=== PATIENT | female | born 1995 ===

== ENCOUNTER 2024-06-02 11:48 | Outpatient (CLI) | payer BC, SELFPAY ==
--- NOTE | ~2024-06-02 | US_ITS ---
EXAMINATION: US pelvic complete DATE: 06/02/2024 12:07 INDICATION: IUD check TECHNIQUE: Multiple transabdominal sonographic images of the pelvis were obtained. COMPARISON: None. FINDINGS: The uterus measures 8.3 x 4.2 x 2.5 cm. The endometrial complex measures 6 mm in thickness. There is a T-shaped linear echogenic and in places shadowing IUD in expected position within the endometrial canal. The right ovary measures 3.2 x 2.5 x 1.3 cm. The left ovary measures 2.9 x 2.7 x 1.7 cm. Vascu lar flow identified in both ovaries on color Doppler. There is no free fluid in the pelvis. IMPRESSION: 1. Unremarkable pelvic ultrasound with IUD in expected position within the endometrial canal. Reviewed, dictated and finalized at location A. IMPRESSION: 1. Unremarkable pelvic ultrasound with IUD in expected position within the endo metrial canal.
== END 2024-06-02 11:49 | disposition home or self-care (01) ==
LOC: MICIMG 11:49
PROVIDERS: PCP Obstetrics & Gynecology Gynecology; Visit Provider Obstetrics & Gynecology Gynecology
DX: Z30.431 Encounter for routine checking of intrauterine contraceptive device (principal)
CPT/HCPCS: 76856